=== PATIENT | female | born 1995 | race Hispanic/Latino ===

== ENCOUNTER 2017-09-14 21:18 | Emergency (ER) | payer MEDICAID, OTHER ==
[~2017-09-14 21:18] MED LIST: IBUP-2070 PO; PREN-66 PO
== END 2017-09-14 22:30 | disposition home or self-care (01) ==
LOC: EDH 21:18
DX: S10.86XA Insect bite of other specified part of neck, initial encounter (principal); Z88.0 Allergy status to penicillin; W57.XXXA Bitten or stung by nonvenomous insect and other nonvenomous arthropods, initial encounter; Y93.89 Activity, other specified; Y92.89 Other specified places as the place of occurrence of the external cause; Y99.8 Other external cause status
CPT/HCPCS: 99281

== ENCOUNTER 2021-07-12 18:04 | Observation (INO) | payer MEDICAID, OTHER ==
[~2021-07-12] VITALS: Ht 152.4 cm; Wt 91.6 kg
[2021-07-12 18:38] LABS: APPEARANCE,URINE Cloudy (CLEAR); BILIRUBIN,URINE Negative (NEGATIVE); COLOR,URINE Yellow (YELLOW); GLUCOSE, URINE (UA) Negative (NEGATIVE); KETONES,URINE >=160 mg/dL (NEGATIVE); LEUKOCYTE ESTERASE ,URINE Moderate (NEGATIVE); NITRATE,URINE Negative (NEGATIVE); OCCULT BLOOD,URINE Negative (NEGATIVE); PROTEIN,URINE Negative (NEGATIVE)
[2021-07-12 18:54] LABS: BACTERIA,URINE Few /HPF (None Seen); MUCUS,URINE Few LPF (None Seen); SQUAMOUS EPITHELIAL CELL,UR Moderate /HPF (0-2)
[2021-07-12] MEDS ORDERED: LACTATED RINGERS 1000ML IV PRN (19:30)
[2021-07-12] MEDS ORDERED: PREN1TAB80 PO (19:33)
[2021-07-12 19:34] VITALS: BP 129/88
[2021-07-12 19:47] LABS: AMPHET/METH SCREEN,URINE NEGATIVE (NEGATIVE); BARBITURATE SCREEN, URINE NEGATIVE (NEGATIVE); BENZODIAZEPINES SCREEN,URINE NEGATIVE (NEGATIVE); CANNABINOID SCREEN,URINE NEGATIVE (NEGATIVE); COCAINE SCREEN,URINE NEGATIVE (NEGATIVE); OPIATE SCREEN,URINE NEGATIVE (NEGATIVE); PHENCYCLIDINE SCREEN,URINE NEGATIVE (NEGATIVE)
[2021-07-13] MEDS ORDERED: MAGNESIUM SULFATE 40GM/1000ML 1,000 ML IV ONE (00:14)
[2021-07-13] MEDS ORDERED: MAGNESIUM 4GM PREMIX 100ML 100 ML IV ONE (00:14)
[2021-07-13] MEDS ORDERED: DEXAMETHASONE SOD PHOSPHATE 4 MG/ML 1ML VIAL ONE (00:15)
[2021-07-13] MEDS: DEXAMETHASONE SOD PHOSPHATE 4 MG/ML 1ML VIAL IM SCH ×4 (00:28→17:24)
[2021-07-13] MEDS ORDERED: MAGNESIUM 4GM PREMIX 100ML 100 ML IV SCH (00:30)
[2021-07-13] MEDS ORDERED: LACTATED RINGERS 1000ML 1,000 ML IV SCH (00:30)
[2021-07-13] MEDS ORDERED: CALCIUM GLUC 1GM/10ML VIAL IV PRN (00:30)
[2021-07-13] MEDS ORDERED: CLINDAMYCIN IVPB 600MG/50ML 50 ML IV SCH (01:00)
[2021-07-13] MEDS ORDERED: MAGNESIUM SULFATE 40GM/1000ML 1,000 ML IV PRN (01:00)
[2021-07-13 05:03] LABS: HEMATOCRIT 32.3 % (36-48); MEAN CORPUSCULAR HEMOGLOBIN 27.2 pg (27.0-33.0); MEAN CORPUSCULAR HGB CONC 33.1 g/dL (32.0-36.0); RED BLOOD CELL COUNT(AUTO) 3.94 MIL/uL (4.00-5.50); RED CELL DISTRIBUTION WIDTH 12.7 % (11.0-15.5); WHITE BLOOD COUNT (AUTO) 6.9 K/uL (4.8-10.8)
[2021-07-13 09:56] LABS: RAPID PLASMA REAGIN NONREACTIVE (NONREACTIVE)
== END 2021-07-13 18:05 | disposition home or self-care (01) ==
LOC: EDH 18:04 → INTOOBSV 18:05 → OBSVTOIN 18:05 → LDH 18:05
PROVIDERS: ADMIT Obstetrics & Gynecology; ATTEND Obstetrics & Gynecology
DX: O62.9 Abnormality of forces of labor, unspecified (principal); O60.03 Preterm labor without delivery, third trimester; O99.213 Obesity complicating pregnancy, third trimester; E66.9 Obesity, unspecified; O24.419 Gestational diabetes mellitus in pregnancy, unspecified control; O26.893 Other specified pregnancy related conditions, third trimester; R10.30 Lower abdominal pain, unspecified; Z3A.29 29 weeks gestation of pregnancy; Z79.899 Other long term (current) drug therapy; Z98.890 Other specified postprocedural states
CPT/HCPCS: 36415; 59025; 76805; 80305; 81001; 83735; 85027; 86592; 86701; 86850; 86900; 86901; 87088; 87340; 87390; 96361 ×2; 96365; 96366 ×2; 96368; 96372; A4314; G0378 ×24; G0379; J1100 ×4; J3475 ×2; J3490; 96367

== ENCOUNTER 2024-04-05 14:28 | Emergency (ER) | payer SELFPAY ==
[~2024-04-05] VITALS: Ht 152.4 cm; Wt 82.1 kg
[~2024-04-05 14:28] MED LIST changes: +PREN1TAB80 PO
[2024-04-05 14:57] VITALS: BP 121/60; PULSE 76; RESP 20; TEMP 99.4; O2SAT 99
--- NOTE | 2024-04-05 15:33 | ERN ---
ED Note History of Present Illness Stated Complaint: ABDOMINAL PAIN Chief Complaint: Abdominal Pain Dictation: This is a case of 28-year-old female with no significant past medical history who presented to the ER with the complaints of right quadrant abdominal pain since 2 days. She describes the pain as intermittent, moderate, nonradiating, pressure-like. She denies fever, chills, recent travel, headache, dizziness, nausea, vomiting, chest pain, palpitations, shortness of breath, diarrhea/constipation, burning sensation when urinating or increased frequency of urination. Hemodynamically stable. Allergies: Coded Allergies: Penicillins (Verified Allergy, Unknown, RASH, 01/23/15) Home Meds Reported Medications Vits W-Ca,Fe,FA(<1Mg) ( Vitamins) 1 Each Tablet, 1 EACH PO DAILY, TAB 07/12/21 Cpv179/Iron Fumarate/FA/Dss ( 19 Tablet) 1 Each Tablet, 1 EACH PO AD, TAB 02/11/17 Ibuprofen (Ibuprofen) 600 Mg Tablet, 600 MG PO Q6H PRN for PAIN, #60 TAB 01/25/15 Past Medical History Past Medical History: No Pertinent History Surgical History: None LMP: Mar 06, 2024 : 3 Para: 3 Aborts: 0 Review of System Dictation CONSTITUTIONAL: No chills, no fever, no weakness, no diaphoresis, no malaise. HEAD/FACE: No signs of trauma. EENT: No eye pain, no blurred vision, no tearing, no double vision, no ear pain, no ear discharge, no nose pain, no nasal congestion, no throat pain, no throat swelling, no mouth pain. RESPIRATORY: No cough, no orthopnea, no SOB, no stridor, no wheezing. CARDIOVASCULAR: No chest pain, no edema, no palpitations, no syncope. GASTROINTESTINAL/ABDOMINAL: Moderate right upper quadrant pain, no constip ation, no diarrhea, no nausea, no vomiting. GENITOURINARY: No abnormal discharge, no dysuria, no frequent urination, no hematuria. No complaints of pain in the genitals. MUSCULOSKELETAL: No back pain, no gout, no joint pain, no joint swelling, no muscle pain, no muscle stiffness, no neck pain. INTEGUMENTARY: No change in color, no change in hair/nails, no dryness, no lesion, no lumps, no rash. NEUROLOGICAL/PSYCH: No anxiety, not depressed, no emotional problem, no headache, no numbness, no pre-existing deficit, no history of seizures, no tremors, no weakness. HEMATOLOGIC/LYMPHATIC: no history of blood clots, no apparent bleeding, no bruising, glands not swollen. All Systems Negative, Except as Noted. Initial Vital Sign VS Vital Signs Date Time Temp Pulse Resp B/P (MAP) Pulse Ox O2 Delivery O2 Flow Rate FiO2 04/05/24 14:57 99.3 76 20 121/60 99 Room Air 0 04/05/24 14:57 21 Physical Exam Dictation Physical Exam Dictation VITAL SIGNS: Reviewed. GENERAL APPEARANCE: Alert, oriented x3, no acute distress, obese. HEAD AND FACE: Non-traumatic. EYES: PERRL, pink conjunctivas, eyelid no trauma, anterior chamber clear. NOSE: No discharge, no bleeding. OROPHARYNX: Mouth normal, teeth no caries, tongue pink. Pharynx clear, no erythema. Tonsils no exudates, no abscesses noted. Mucous membrane moist. NECK: Supple, non-tender, no thyromegaly, no masses, no JVD, no bruits. BREAST: Deferred. CHEST: No tenderness, no crepitus, no paradoxical movement, no retractions. LUNGS: Clear, well-ventilated, symmetric, no rales, no wheezing, no rhonchi, no stridor, good breath sounds bilaterally. HEART: Regular rate, regular rhythm, no murmur, no gallops. VASCULAR: No peripheral edema. ABDOMEN: Soft, positive bowel sounds, nondistended, no guarding, mild tenderness in right upper quadrant region no rebound, no masses no hepatomegaly, no splenomegaly, negative Estrada's sign, no hernias. RECTAL: Deferred. GENITAL: Deferred. NEUROLOGICAL: Normal speech, gross motor function intact, gross sensory function intact. MUSCULOSKELETAL: Neck nontender, full range of motion, back nontender, full range of motion. EXTREMITIES: Nontender, full range of motion. SKIN: Color pink, dry, no turgor, no rash, no lacerations, no abrasions, no contusions. LYMPHATICS: Deferred. Results (Laboratory/Radiology) Laboratory/Radiology Laboratory Tests Test 04/05/24 16:00 04/05/24 16:12 Urine Color YELLOW (YELLOW) Urine Appearance CLOUDY (CLEAR) H Urine pH 7.0 (5.0-8.0) Urine Specific G[place]mith 1.013 (1.001-1.031) Urine Protein NEGATIVE mg/dL (NEGATIVE) Urine Glucose (UA) NEGATIVE mg/dL (NEGATIVE) Urine Ketones NEGATIVE mg/dL (NEGATIVE) Urine Occult Blood NEGATIVE (NEGATIVE) Urine Nitrate NEGATIVE (NEGATIVE) Urine Bilirubin NEGATIVE mg/dL (NEGATIVE) Urine Urobilinogen 0.2 mg/dL (0.2-1.0) Urine Leukocyte Esterase 500 Diego/uL (NEGATIVE) H Urine RBC 6-10 /HPF (0-1) H Urine WBC 26-50 /HPF (0-1) H Urine Squamous Epithelial Cells MANY /HPF (0-2) Urine Bacteria None /HPF (None Seen) Serum Test, Qualitative NEGATIVE (NEGATIVE) White Blood Count 5.5 K/uL (4.8-10.8) Red Blood Count 4.77 MIL/uL (4.00-5.50) Hemoglobin 13.3 g/dL (12.0-16.0) Hematocrit 40.1 % (36-48) Mean Corpuscular Volume 84.1 fL (79-99) Mean Corpuscular Hemoglobin 27.9 pg (27.0-33.0) Mean Corpuscular Hemoglobin Concent 33.2 g/dL (32.0-36.0) Red Cell Distribution Width 12.5 % (11.0-15.5) Platelet Count 256 K/uL (130-400) Mean Platelet Volume 9.8 fL (7.5-10.5) Immature Granulocyte % (Auto) 0.2 % (0-1) Neutrophils (%) (Auto) 56.4 % (40.0-77.0) Lymphocytes (%) (Auto) 36.1 % (21.0-51.0) Monocytes (%) (Auto) 5.5 % (3.0-13.0) Eosinophils (%) (Auto) 1.3 % (0.0-8.0) Basophils (%) (Auto) 0.5 % (0.0-5.0) Neutrophils # (Auto) 3.1 K/uL (1.8-7.7) Lymphocytes # (Auto) 2.0 K/uL (1.0-4.8) Monocytes # (Auto) 0.3 K/uL (0.1-1.0) Eosinophils # (Auto) 0.07 K/uL (0.00-0.70) Basophils # (Auto) 0.03 K/uL (0.00-0.20) Absolute Immature Granulocyte (auto 0.01 K/uL (0-1) Nucleated Red Blood Cells 0.0 % (0.0-0.19) Prothrombin Time 10.3 SEC (9.6-11.6) Prothromb Time International Ratio <= 0.93 (0.85-1.15) Activated Partial Thromboplast Time 27.1 SEC (26.3-35.5) Sodium Level 140 mmol/L (136-145) Potassium Level 3.9 mmol/L (3.5-5.1) Chloride Level 104 mmol/L (101-111) Carbon Dioxide Level 27 mmol/L (21-32) Blood Urea Nitrogen 7 mg/dL (7-18) Creatinine 0.7 mg/dL (0.5-1.0) Glomerular Filtration Rate Calc 119 mL/min (>90) Random Glucose 88 mg/dL (70-105) Lactic Acid Level 1.3 mmol/L (0.8-2.5) Total Calcium 8.9 mg/dL (8.5-10.1) Total Bilirubin 1.1 mg/dL (0.2-1.0) H Direct Bilirubin 0.2 mg/dL (0.0-0.3) Aspartate Amino Transf (AST/SGOT) 13 U/L (10-37) Alanine Aminotransferase (ALT/SGPT) 18 U/L (12-78) Alkaline Phosphatase 68 U/L (50-136) Troponin I High Sensitivity < 4 ng/L (4-50) L Total Protein 8.0 g/dL (6.0-8.3) Albumin 3.4 g/dL (3.5-5.0) L Lipase 35 U/L (16-77) Procalcitonin < 0.05 ng/mL (0.05-0.5) L Human Chorionic Gonadotropin, Quant 0 mIU/mL (0-5) Ultrasound Comment: ORDERING PHYSICIAN: THOMAS GARCIA MD PROCEDURE: ABDRUQLTD - US ABDOMINAL RUQ\LTD US ABDOMINAL RUQ\E\LTD HISTORY: INTERMITTENT RUQ PAIN COMPARISON: None FINDINGS: There is mild fatty infiltration of the liver. There are no focal liver masses. The liver is not enlarged.There is a normal-appearing gallbladder. Common duct is normal. Right kidney is normal with no evidence of mass, hydronephrosis or stone.The pancreas appears normal as well. IMPRESSION: 1. Mild hepatic steatosis, the exam is otherwise normal. ED Course ED Course Orders Procedure Category Date Status Time 12 Lead Ekg Tracing- EKG 04/05/24 Complete Technical 14:32 Cbc With Differential LAB 04/05/24 Complete 14:32 Basic Metabolic Panel LAB 04/05/24 Complete 14:32 Hepatic Function Panel LAB 04/05/24 Complete 14:32 Hcg,Quantitative LAB 04/05/24 Complete 14:32 Lactic Acid LAB 04/05/24 Complete 14:32 Lipase LAB 04/05/24 Complete 14:32 Procalcitonin LAB 04/05/24 Complete 14:32 Testing, LAB 04/05/24 Complete Serum Hcg 14:32 Pt And Ptt LAB 04/05/24 Complete 14:32 Troponin I High LAB 04/05/24 Complete Sensitivity 14:32 Urinalysis LAB 04/05/24 Complete W/Microscopic 14:32 Us Abdominal Ruq\Ltd US 04/05/24 Resulted 15:26 Culture Urine CAMILA 04/05/24 In Process 16:41 Vital Signs Date Time Temp Pulse Resp B/P (MAP) Pulse Ox O2 Delivery O2 Flow Rate FiO2 04/05/24 14:57 99.3 76 20 121/60 99 Room Air* 0 21 04/05/24 14:57 99.3 76 20 121/60 99 Room Air 0 Medical Decision Making [facility] Potential differential diagnoses include: Cholelithiasis Hepatitis Peptic ulcer Assessment: We will order CBC to rule any anemia, infections and to evaluate the overall health of the patient. CMP was ordered in order to assess various electrolytes, kidney function, liver function ,protein levels and blood glucose levels. Right upper quadrant ultrasound to rule out cholelithiasis/cholecystitis. I will re-evaluate the patient after treatment and diagnostic exams have returned to determine whether they require further testing, can be safely discharged home, or need admission for further treatment and evaluation. Given the social determinants of health affecting care, including literacy, access to medical care, prescription drug management, and [id number]-[id number] drugs, I will ensure that treatment plans are tailored accordingly. Revaluation : Patient is alert awake and oriented. Hemodynamically stable. Labs CBC, BMP, LFT results are unremarkable. Urinalysis positive for leukocyte esterase indicating infection. Right upper quadrant ultrasound resulted in hepatic steatosis. Disposition: Patient is being discharged home with oral prescription of Keflex 500 mg b.i.d. for 10 days Advised to follow up with PCP within 2-3 days Advised to follow up with GI in view of hepatitic steatosis Follow a low-fat balanced diet Avoid excessive sugar, refined carbohydrates and processed foods Do not consume alcohol as it can worsen liver damage Take [id number] medications like acetaminophen p.r.n. for pain Complete the Keflex antibiotic course for UTI If symptoms worsen, such as increasing pain, fever, jaundice or vomiting seek immediate medical care DX & DISP Disposition: Discharge Departure Impression: Primary Impression: Hepatic steatosis Additional Impression: UTI (urinary tract infection) Critical Time: 30 minutes Condition: Stable Referrals: ASHELY HIGGINS Jr., MD (PCP) ATTESTATION BY PHYSICIAN I have seen and examined the patient. I reviewed the documentation, medical decision making, and treatment plan as noted by the resident above. I agree with the findings and plan of care. THOMAS ROMAN MD, MD Apr 05, 2024 15:33
--- NOTE | 2024-04-05 16:00 | HMCIMG ---
US ABDOMINAL RUQ\E\LTD HISTORY: INTERMITTENT RUQ PAIN COMPARISON: None FINDINGS: There is mild fatty infiltration of the liver. There are no focal liver masses. The liver is not enlarged.There is a normal-appearing gallbladder. Common duct is normal. Right kidney is normal with no evidence of mass, hydronephrosis or stone.The pancreas appears normal as well. IMPRESSION: 1. Mild hepatic steatosis, the exam is otherwise normal.
[2024-04-05 16:21] LABS: BASOPHILS # (AUTO) 0.03 K/uL (0.00-0.20); BASOPHILS % (AUTO) 0.5 % (0.0-5.0); EOSINOPHILS # (AUTO) 0.07 K/uL (0.00-0.70); EOSINOPHILS % (AUTO) 1.3 % (0.0-8.0); HEMATOCRIT 40.1 % (36-48); IMMATURE GRANULOCYTE ABSOLUTE 0.01 K/uL (0-1); LYMPHOCYTES % (AUTO) 36.1 % (21.0-51.0); MEAN CORPUSCULAR HEMOGLOBIN 27.9 pg (27.0-33.0); MEAN CORPUSCULAR HGB CONC 33.2 g/dL (32.0-36.0); MEAN CORPUSCULAR VOLUME 84.1 fL (79-99); MONOCYTES # (AUTO) 0.3 K/uL (0.1-1.0); MONOCYTES % (AUTO) 5.5 % (3.0-13.0); NEUTROPHILS # (AUTO) 3.1 K/uL (1.8-7.7); NEUTROPHILS % (AUTO) 56.4 % (40.0-77.0); PLATELET COUNT (AUTO) 256 K/uL (130-400); RED BLOOD CELL COUNT(AUTO) 4.77 MIL/uL (4.00-5.50); RED CELL DISTRIBUTION WIDTH 12.5 % (11.0-15.5); WHITE BLOOD COUNT (AUTO) 5.5 K/uL (4.8-10.8)
--- NOTE | 2024-04-05 16:25 | EKG ---
[facility] Test Date: 2024-04-05 Test Time: 16:19:49 Pat Name: AMNA COBURN Department: [facility]H Room: Gender: F Fullerette: [id number] : 1995 Requested By: RADHA VALENCIA Order Number: [id number] Reading MD: Ari Waterman Measurements Intervals [place] Rate: 72 P: 23 [place]: 113 QRS: 57 QRSD: 91 T: 12 QT: 399 QTc: 436 Interpretive Statements Sinus rhythm No previous ECG available for comparison Electronically Signed On 04-06-2024 18:39:15 [employer] by Ari Waterman Please click the below link to view image of tracing.
--- NOTE | 2024-04-05 16:30 | NUR ---
BEDED [place] [id number]
[2024-04-05 16:35] LABS: APPEARANCE,URINE CLOUDY (CLEAR); BILIRUBIN,URINE NEGATIVE (NEGATIVE); COLOR,URINE YELLOW (YELLOW); GLUCOSE, URINE (UA) NEGATIVE (NEGATIVE); KETONES,URINE NEGATIVE (NEGATIVE); LEUKOCYTE ESTERASE ,URINE 500 Leu/uL (NEGATIVE); NITRATE,URINE NEGATIVE (NEGATIVE); OCCULT BLOOD,URINE NEGATIVE (NEGATIVE); PROTEIN,URINE NEGATIVE (NEGATIVE); UROBILINOGEN,URINE 0.2 mg/dL (0.2-1.0)
[2024-04-05 16:39] LABS: CREATININE 0.7 mg/dL (0.5-1.0); POTASSIUM 3.9 mmol/L (3.5-5.1)
[2024-04-05 16:44] LABS: INR <= 0.93 (0.85-1.15); PROTHROMBIN TIME 10.3 SEC (9.6-11.6)
[2024-04-05 16:44] LABS: MUCUS,URINE RARE LPF (None Seen); SQUAMOUS EPITHELIAL CELL,UR MANY /HPF (0-2); WBC,URINE 26-50 /HPF (0-1)
[2024-04-05 16:45] LABS: PARTIAL THROMBOPLASTIN TIME 27.1 SEC (26.3-35.5)
[2024-04-05 16:51] LABS: ALBUMIN 3.4 g/dL (3.5-5.0); BILIRUBIN,DIRECT 0.2 mg/dL (0.0-0.3); BILIRUBIN,TOTAL 1.1 mg/dL (0.2-1.0)
[2024-04-05] MEDS ORDERED: SULF1TAB42 PO (17:16)
== END 2024-04-05 17:22 | disposition home or self-care (01) ==
LOC: EDH 14:28
DX: K76.0 Fatty (change of) liver, not elsewhere classified (principal); N39.0 Urinary tract infection, site not specified; R10.2 Pelvic and perineal pain; Z88.0 Allergy status to penicillin
CPT/HCPCS: 36415; 76705; 80048; 80076; 81001; 83605; 83690; 84145; 84484; 84702; 84703; 85025; 85610; 85730; 87086; 93005; 99284

== ENCOUNTER 2024-05-26 05:06 | Inpatient (IN) | payer SELFPAY ==
[~2024-05-26] VITALS: Ht 152.4 cm; Wt 81.1 kg
[2024-05-26] VITALS (21 sets, daily range): BP systolic 100–118; BP diastolic 52–63; PULSE 69–108; RESP 14–20; TEMP 97.1–99.8; O2SAT 100
[~2024-05-26 05:06] MED LIST changes: +SULF1TAB42 PO
--- NOTE | 2024-05-26 05:24 | ERN ---
General Chief Complaint: Abdominal Pain Stated Complaint: RUQ ABDOMINAL PAIN Time Seen by MD: 05:08 History of Present Illness Initial Comments 28F, otherwise healthy, presents for R sided abd pain x 36h. Started midline, has radiated to R mid abdomen. Nausea, no vomiting. PO tolerant, ate dinner without problem last night. No flank pain, fevers, vaginal bleeding or discharge, urinary symptoms, vomiting, or diarrhea. Patient reports a similar episode a few months ago which resolved. Allergies: Coded Allergies: Penicillins (Verified Allergy, Unknown, RASH, 01/23/15) Home Meds Active Scripts Sulfamethoxazole/Trimethoprim (Bactrim Ds Tablet) 800 Mg-160 Mg Tablet, 1 TAB PO BID for 7 Days, #14 TAB 0 Refills Prov:THOMAS GARCIA MD 04/05/24 Reported Medications Vits W-Ca,Fe,FA(<1Mg) ( Vitamins) 1 Each Tablet, 1 EACH PO DAILY, TAB 07/12/21 Kvo294/Iron Fumarate/FA/Dss ( 19 Tablet) 1 Each Tablet, 1 EACH PO AD, TAB 02/11/17 Ibuprofen (Ibuprofen) 600 Mg Tablet, 600 MG PO Q6H PRN for PAIN, #60 TAB 01/25/15 Past Medical History Past Medical History: Other Medical History Other: FATTY LIVER Past Surgical History: None Female( History) LMP: May 11, 2024 : 3 Para: 3 Aborts: 0 ROS Dictation CONSTITUTIONAL: No chills, no fever, no weakness, no diaphoresis, no malaise. HEAD/FACE: No signs of trauma. EENT: No eye pain, no blurred vision, no tearing, no double vision, no ear pain, no ear discharge, no nose pain, no nasal congestion, no throat pain, no throat swelling, no mouth pain. RESPIRATORY: No cough, no orthopnea, no SOB, no stridor, no wheezing. CARDIOVASCULAR: No chest pain, no edema, no palpitations, no syncope. GASTROINTESTINAL/ABDOMINAL: Right-sided abdominal pain GENITOURINARY: No abnormal discharge, no dysuria, no frequent urination, no hematuria. No complaints of pain in the genitals. MUSCULOSKELETAL: No back pain, no gout, no joint pain, no joint swelling, no muscle pain, no muscle stiffness, no neck pain. INTEGUMENTARY: No change in color, no change in hair/nails, no dryness, no lesion, no lumps, no rash. NEUROLOGICAL/PSYCH: No anxiety, not depressed, no emotional problem, no headache, no numbness, no pre-existing deficit, no history of seizures, no tremors, no weakness. HEMATOLOGIC/LYMPHATIC: Not anemic, no history of blood clots, no apparent bleeding, no bruising, glands not swollen. All Systems Negative, Except as Noted. Physical Exam Physical Exam Dictation VITAL SIGNS: Reviewed. GENERAL APPEARANCE: Alert, oriented x3, no acute distress, obese. HEAD AND FACE: Non-traumatic. EYES: PERRL, pink conjunctivas, eyelid no trauma, anterior chamber clear. EARS: Pinnas intact and no signs of trauma or erythema. Ear canals clear and no discharge. TMs no erythema. NOSE: No discharge, no bleeding. OROPHARYNX: Mouth normal, teeth no caries, tongue pink. Pharynx clear, no erythema. Tonsils no exudates, no abscesses noted. Mucous membrane moist. NECK: Supple, non-tender, no thyromegaly, no masses, no JVD, no bruits. BREAST: Deferred. CHEST: No tenderness, no crepitus, no paradoxical movement, no retractions. LUNGS: Clear, well-ventilated, symmetric, no rales, no wheezing, no rhonchi, no stridor, good breath sounds bilaterally. HEART: Regular rate, regular rhythm, no murmur, no gallops. VASCULAR: No peripheral edema. ABDOMEN: Soft, positive bowel sounds, nondistended, no guarding, RLQ tenderness, no rebound, no masses no hepatomegaly, no splenomegaly, no Estrada's sign, no hernias. RECTAL: Deferred. GENITAL: Deferred. NEUROLOGICAL: Normal speech, gross motor function intact, gross sensory function intact. MUSCULOSKELETAL: Neck nontender, full range of motion, back nontender, full range of motion. EXTREMITIES: Nontender, full range of motion. SKIN: Color pink, dry, no turgor, no rash, no lacerations, no abrasions, no contusions. LYMPHATICS: Deferred. Results Laboratory and Microbiology Lab and Micro Result Labs Reviewed?: Yes EKG/XRAY/US/CT/MRI CT Scan Comment REASON: R sided abd pain ORDERING PHYSICIAN: WORTH,ROEL E DO PROCEDURE: ABD PEL W - CT ABDOMEN/PELVIS W/CONTRAST CT ABDOMEN/PELVIS W/CONTRAST REASON: R sided abd pain COMPARISON: None. TECHNIQUE: Images are obtained from lung bases to the symphysis pubis following IV contrast, 100 cc Omnipaque 350. FINDINGS: Lung bases are clear. There are no focal liver lesions. There are normal-appearing kidneys.. Spleen and pancreas appear unremarkable. The gallbladder appears normal as well. The appendix is dilated to 9 mm. There is inflammation around the appendix. There is mural enhancement. Findings are consistent with acute appendicitis. There is a small amount of free fluid in the pelvic cul-de-sac. There is no evidence of periappendiceal abscess. Bowel loops appear otherwise unremarkable. There is no evidence of obstruction. There is no evidence of free air. There are no focal fluid collections. Aorta and retroperitoneum appear normal as do pelvic soft tissue structures. The anterior abdominal wall is intact. Osseous structures appear unremarkable. IMPRESSION: 1. Findings consistent with acute appendicitis. 2. Small amount of free fluid in the pelvic cul-de-sac, there is no evidence of abscess or free air. CT was performed with one or more following dose reduction techniques: automated exposure control, adjustment of the mA and kv according to patient's size, or use of a iterative reconstruction technique. DICTATED BY: FELIZ ALDANA MD DATE: 05/26/24 08 [facility] MDM: Differential diagnosis: Appendicitis, abdominal pain Surgery consult 09- Hospitalist consult, accepts patient for admission Rationale: Tests considered and ordered secondary to shared decision making incl ude: labs, ECG and radiology Risk of complication and/or morbidity or mortality of patient management: None Medications-Per medication reconciliation Need for hospitalization: Patient does meet criteria for hospitalization. Need for emergency major/minor surgery: No There are no social concerns with this patient. I independently interpreted the test that were performed, results were reviewed by me and considered findings on radiology if ordered. Medical management and examination interpretation discussions were had by me with other qualified healthcare professionals as indicated for the patient's care. ED Course DX & DISP Disposition: Inpatient Decision to Admit Date: May 26, 2024 Decision to Admit Time: 09:27 Departure Impression: Primary Impression: Appendicitis Condition: Stable Referrals: SELF,REFERRAL (PCP) ROEL TRIPLETT DO May 26, 2024 05:24 GOPI DIAZ MD May 26, 2024 09:25
[2024-05-26] MEDS: ondanSETRON 4MG INJ IVP ONE (05:27)
[2024-05-26] MEDS: ketOROlac 15MG/ML VIAL (15MG/ML) IV ONE (05:27)
[2024-05-26 05:36] LABS: BASOPHILS # (AUTO) 0.04 K/uL (0.00-0.20); BASOPHILS % (AUTO) 0.4 % (0.0-5.0); EOSINOPHILS # (AUTO) 0.17 K/uL (0.00-0.70); EOSINOPHILS % (AUTO) 1.6 % (0.0-8.0); HEMATOCRIT 40.5 % (36-48); IMMATURE GRANULOCYTE ABSOLUTE 0.02 K/uL (0-1); LYMPHOCYTES # (AUTO) 3.3 K/uL (1.0-4.8); LYMPHOCYTES % (AUTO) 31.3 % (21.0-51.0); MEAN CORPUSCULAR HEMOGLOBIN 27.8 pg (27.0-33.0); MEAN CORPUSCULAR HGB CONC 32.8 g/dL (32.0-36.0); MEAN CORPUSCULAR VOLUME 84.6 fL (79-99); MONOCYTES # (AUTO) 0.6 K/uL (0.1-1.0); MONOCYTES % (AUTO) 5.7 % (3.0-13.0); NEUTROPHILS # (AUTO) 6.5 K/uL (1.8-7.7); NEUTROPHILS % (AUTO) 60.8 % (40.0-77.0); PLATELET COUNT (AUTO) 233 K/uL (130-400); RED BLOOD CELL COUNT(AUTO) 4.79 MIL/uL (4.00-5.50); RED CELL DISTRIBUTION WIDTH 12.6 % (11.0-15.5); WHITE BLOOD COUNT (AUTO) 10.7 K/uL (4.8-10.8)
[2024-05-26 05:50] LABS: ALBUMIN 3.3 g/dL (3.5-5.0); BILIRUBIN,DIRECT 0.2 mg/dL (0.0-0.3); BILIRUBIN,TOTAL 1.1 mg/dL (0.2-1.0); TOTAL PROTEIN, SERUM 7.8 g/dL (6.0-8.3)
[2024-05-26 05:58] LABS: APPEARANCE,URINE CLEAR (CLEAR); BILIRUBIN,URINE NEGATIVE (NEGATIVE); COLOR,URINE LIGHT-YELLOW (YELLOW); GLUCOSE, URINE (UA) NEGATIVE (NEGATIVE); KETONES,URINE NEGATIVE (NEGATIVE); LEUKOCYTE ESTERASE ,URINE 75 Leu/uL (NEGATIVE); NITRATE,URINE NEGATIVE (NEGATIVE); OCCULT BLOOD,URINE NEGATIVE (NEGATIVE); PROTEIN,URINE NEGATIVE (NEGATIVE); UROBILINOGEN,URINE 0.2 mg/dL (0.2-1.0)
[2024-05-26 06:01] LABS: ADD UA MICROSCOPIC YES
[2024-05-26 06:02] LABS: BACTERIA,URINE FEW /HPF (None Seen); MUCUS,URINE RARE LPF (None Seen); RBC,URINE 0-1 /HPF (0-1); SQUAMOUS EPITHELIAL CELL,UR FEW /HPF (0-2)
[2024-05-26 06:23] LABS: CREATININE 0.5 mg/dL (0.5-1.0); POTASSIUM 3.6 mmol/L (3.5-5.1)
[2024-05-26] MEDS ORDERED: IOHEXOL 350 MG/ML 100ML INFUS..BTL IV ONE (06:37)
--- NOTE | 2024-05-26 08:22 | HMCIMG ---
CT ABDOMEN/PELVIS W/CONTRAST REASON: R sided abd pain COMPARISON: None. TECHNIQUE: Images are obtained from lung bases to the symphysis pubis following IV contrast, 100 cc Omnipaque 350. FINDINGS: Lung bases are clear. There are no focal liver lesions. There are normal-appearing kidneys.. Spleen and pancreas appear unremarkable. The gallbladder appears normal as well. The appendix is dilated to 9 mm. There is inflammation around the appendix. There is mural enhancement. Findings are consistent with acute appendicitis. There is a small amount of free fluid in the pelvic cul-de-sac. There is no evidence of periappendiceal abscess. Bowel loops appear otherwise unremarkable. There is no evidence of obstruction. There is no evidence of free air. There are no focal fluid collections. Aorta and retroperitoneum appear normal as do pelvic soft tissue structures. The anterior abdominal wall is intact. Osseous structures appear unremarkable. IMPRESSION: 1. Findings consistent with acute appendicitis. 2. Small amount of free fluid in the pelvic cul-de-sac, there is no evidence of abscess or free air. CT was performed with one or more following dose reduction techniques: automated exposure control, adjustment of the mA and kv according to patient's size, or use of a iterative reconstruction technique.
[2024-05-26] MEDS: CEFTRIAXONE 2GM VIAL IVPB ONE (09:02)
[2024-05-26] MEDS ORDERED: ondanSETRON 4MG INJ IVP PRN (10:00)
[2024-05-26] MEDS ORDERED: acetaMINOPHEN 325 MG TAB PO PRN (10:00)
[2024-05-26] MEDS ORDERED: morPHINE 2 MG SYG IVP PRN (10:00)
--- NOTE | 2024-05-26 10:05 | NUR ---
1000 PT TAKEN BY STRETECHER TO OR HOLDING FOR SURGERY BY YVONNE TRAN, PT [id number] VITALS STABLE NO C/O PAIN, AT BEDSIDE WTH PERSONAL BELONGINGS WILL WAIT IN HOLDING AREA.
--- NOTE | 2024-05-26 10:24 | CONS ---
GENERAL SURGERY CONSULTATION NOTE Date/Time Patient Seen: 05/26/2024 10:00 a.m. Requesting Physician: ED physician Reason for Consultation: Acute appendicitis History of Present Illness: This is a 28-year-old female that presented to the ED for 24 hours of periumbilical abdominal pain radiating to the right side. Patient reports that she had similar pain a couple of weeks ago that resolved on its own. This pain has been constant and worsening. So she came to the ED. patient denies any fevers, chills, nausea, or vomiting. No constipation or diarrhea. In the ED patient has been afebrile and hemodynamically stable. She has no leukocytosis. A CT scan of the abdomen and pelvis was performed showing an enlarged and indurated appendix with surrounding fat stranding. Patient was admitted to the hospitalist service and started on IV fluids and IV antibiotics. Surgery was consulted for suspected acute appendicitis. Past Medical History: None Past Surgical History: None Family History: None Social History: Nonsmoker Nondrinker Current Medications Medications (Trade) Dose Ordered Sig/Paula Route Start Time Stop Time Status Last Admin Dose Admin Famotidine (Pepcid 20mg Vial) 20 mg BID IV 05/26/24 21:00 06/25/24 20:59 Piperacillin Sod/ Tazobactam Sod (Zosyn 3.375gm+NS 50ml) 3.375 gm Q8H IV 05/26/24 14:00 06/05/24 13:59 Review of Systems: CONST: No fever, fatigue, or weight changes. EYES: No recent vision problems. ENT: No congestion, ear pain, or sore throat. C/V: No chest pain, palpitations, or edema. RESP: No cough, congestion, wheezing or shortness of breath. GI: No abdominal pain, nausea, vomiting, constipation, or diarrhea. : No incontinence or dysuria. SKIN: No rash. NEURO: No headache, focal numbness or weakness, dizziness, or seizures. PSYCH: No depression or anxiety. HEME: No abnormal bruising or bleeding. LYMPH: No swollen glands. Physical Examination: GENERAL: No acute distress. HEAD: Normal with no signs of head trauma. EYES: PERRLA, EOMI, conjunctiva and sclera normal. LUNGS: Respirations nonlabored HEART: Regular rate and rhythm ABD: Soft, nondistended, mild focal tenderness to the right hemiabdomen, no rebound, no guarding : Not examined EXT: No clubbing, cyanosis or edema. SKIN: No rashes or lesions noted. NEURO: Awake, alert, and oriented x3. No focal sensory or strength deficits noted. Vital Signs (last 8hr) Date Time Temp Pulse Resp B/P (MAP) Pulse Ox O2 Delivery O2 Flow Rate FiO2 05/26/24 08:59 98.6 69 16 101/53 100 Room Air* 0 21 05/26/24 06:27 98.6 74 20 106/65 100 Room Air* 0 21 05/26/24 05:27 98.6 72 20 123/70 100 Room Air* 0 21 05/26/24 05:08 98.4 74 18 105/64 100 Room Air 0 Laboratory: Hematology Labs: Test 05/26/24 05:23 Range/Units White Blood Count 10.7 4.8-10.8 K/uL Red Blood Count 4.79 4.00-5.50 MIL/uL Hemoglobin 13.3 12.0-16.0 g/dL Hematocrit 40.5 36-48 % Mean Corpuscular Volume 84.6 79-99 fL Mean Corpuscular Hemoglobin 27.8 27.0-33.0 pg Mean Corpuscular Hemoglobin Concent 32.8 32.0-36.0 g/dL Red Cell Distribution Width 12.6 11.0-15.5 % Platelet Count 233 130-400 K/uL Mean Platelet Volume 10.1 7.5-10.5 fL Immature Granulocyte % (Auto) 0.2 0-1 % Neutrophils (%) (Auto) 60.8 40.0-77.0 % Lymphocytes (%) (Auto) 31.3 21.0-51.0 % Monocytes (%) (Auto) 5.7 3.0-13.0 % Eosinophils (%) (Auto) 1.6 0.0-8.0 % Basophils (%) (Auto) 0.4 0.0-5.0 % Neutrophils # (Auto) 6.5 1.8-7.7 K/uL Lymphocytes # (Auto) 3.3 1.0-4.8 K/uL Monocytes # (Auto) 0.6 0.1-1.0 K/uL Eosinophils # (Auto) 0.17 0.00-0.70 K/uL Basophils # (Auto) 0.04 0.00-0.20 K/uL Absolute Immature Granulocyte (auto 0.02 0-1 K/uL Nucleated Red Blood Cells 0.0 0.0-0.19 % Chemistry Labs: Test 05/26/24 05:23 Range/Units Sodium Level 140 136-145 mmol/L Potassium Level 3.6 3.5-5.1 mmol/L Chloride Level 106 101-111 mmol/L Carbon Dioxide Level 26 21-32 mmol/L Blood Urea Nitrogen 5 L 7-18 mg/dL Creatinine 0.5 0.5-1.0 mg/dL Glomerular Filtration Rate Calc 129 >90 mL/min Random Glucose 93 70-105 mg/dL Total Calcium 8.3 L 8.5-10.1 mg/dL Total Bilirubin 1.1 H 0.2-1.0 mg/dL Direct Bilirubin 0.2 0.0-0.3 mg/dL Aspartate Amino Transf (AST/SGOT) 13 10-37 U/L Alanine Aminotransferase (ALT/SGPT) 23 12-78 U/L Alkaline Phosphatase 67 50-136 U/L Total Protein 7.8 6.0-8.3 g/dL Albumin 3.3 L 3.5-5.0 g/dL Amylase Level 46 25-115 U/L Lipase 26 16-77 U/L Human Chorionic Gonadotropin, Quant 0 0-5 mIU/mL Diagnostics / Radiology: PATIENT: AMNA COBURN MR#: [id number] : 1995 SEX: F AGE: 28 LOCATION: [facility] ORDER 3 STATUS: REG ER REPORT#: [id number] SERVICE 3 REASON: R sided abd pain ORDERING PHYSICIAN: ROEL TRIPLETT DO PROCEDURE: ABD PEL W - CT ABDOMEN/PELVIS W/CONTRAST CT ABDOMEN/PELVIS W/CONTRAST REASON: R sided abd pain COMPARISON: None. TECHNIQUE: Images are obtained from lung bases to the symphysis pubis following IV contrast, 100 cc Omnipaque 350. FINDINGS: Lung bases are clear. There are no focal liver lesions. There are normal-appearing kidneys.. Spleen and pancreas appear unremarkable. The gallbladder appears normal as well. The appendix is dilated to 9 mm. There is inflammation around the appendix. There is mural enhancement. Findings are consistent with acute appendicitis. There is a small amount of free fluid in the pelvic cul-de-sac. There is no evidence of periappendiceal abscess. Bowel loops appear otherwise unremarkable. There is no evidence of obstruction. There is no evidence of free air. There are no focal fluid collections. Aorta and retroperitoneum appear normal as do pelvic soft tissue structures. The anterior abdominal wall is intact. Osseous structures appear unremarkable. IMPRESSION: 1. Findings consistent with acute appendicitis. 2. Small amount of free fluid in the pelvic cul-de-sac, there is no evidence of abscess or free air. CT was performed with one or more following dose reduction techniques: automated exposure control, adjustment of the mA and kv according to patient's size, or use of a iterative reconstruction technique. DICTATED BY: FELIZ ALDANA MD DATE: 05/26/24816 ELECTRONICALLY SIGNED BY: FELIZ ALDANA MD DATE: 05/26/24821 Assessment: This is a 28-year-old female with acute onset abdominal pain radiating to the right lower quadrant likely due to acute appendicitis. I recommended laparoscopic appendectomy. I discussed the procedure in detail with the patient and her was at bedside. All questions were answered. The patient expressed understanding and agreement with the plan. Plan: OR now Continue IV antibiotics Continue IV fluids STEPHANIE OBANDO DO May 26, 2024 10:24
[2024-05-26] MEDS ORDERED: BUPIvacaine/PF 0.25% 30ML VIAL IJ ONE (10:52)
[2024-05-26] MEDS ORDERED: LIDOCAINE HCL 1% 20 ML VIAL ONE (10:52)
[2024-05-26] MEDS ORDERED: rocuRONium bROMide 10MG/1ML 5ML VL ONE (10:57)
[2024-05-26] MEDS ORDERED: SUCCINYLCHOLINE CHLORIDE 20 MG/ML 10 ML VIAL ONE (10:57)
[2024-05-26] MEDS ORDERED: dexaMETHasone SOD PHOSPHATE 10MG/ML 1ML VIAL ONE (10:57)
[2024-05-26] MEDS ORDERED: ondanSETRON 4MG INJ ONE ×2 (10:57→11:28)
[2024-05-26] MEDS ORDERED: NEOSTIGMINE METHYLSULFATE 1MG/ML IV ONE ×2 (10:57→12:15)
[2024-05-26] MEDS ORDERED: proPOFol 10 MG/ML 20ML VIAL IV ONE (10:57)
[2024-05-26] MEDS ORDERED: GLYCOPYRROLATE 0.2 MG/ML 5 ML VIAL ONE ×2 (10:57→12:15)
[2024-05-26] MEDS ORDERED: LIDOCAINE PF 100MG/5ML (2%) SYRINGE 5ML ONE (10:57)
[2024-05-26] MEDS ORDERED: MIDAZOLAM HCL 1 MG/ML 2ML VIAL ONE (10:58)
[2024-05-26] MEDS ORDERED: FENTanyl CITRate PF 50 MCG/1 ML 2ML VIAL ONE (10:58)
[2024-05-26] MEDS ORDERED: ROPivacaine 0.5% 5MG/ML 30ML ONE (11:03)
[2024-05-26] MEDS ORDERED: dexaMETHasone SOD PHOSPHATE 4 MG/ML 1ML VIAL ONE (11:15)
[2024-05-26] MEDS ORDERED: ePHEDrine SULFate 50 MG/ML AMPULE ONE (11:53)
[2024-05-26] MEDS ORDERED: ketOROlac 30MG VIAL (30MG/ML) ONE (12:18)
--- NOTE | 2024-05-26 12:23 | OP ---
Operative Note: DATE OF PROCEDURE: 05/26/24 SURGEON: STEPHANIE OBANDO DO DUPLICATING MACHINE SERVICER: None ANESTHESIA: General ANESTHESIOLOGIST/EDUCATIONAL PSYCHOLOGY PROFESSOR: ANDREY Godwin PREOPERATIVE DIAGNOSIS: Acute appendicitis POSTOPERATIVE DIAGNOSIS: Acute uncomplicated appendicitis SYNOPSIS: None PROCEDURE: Laparoscopic appendectomy ESTIMATED BLOOD LOSS: 30 cc INDICATIONS: This is a 28-year-old female with acute onset lower abdominal pain radiating to the right side. She had no leukocytosis. No fever. CT scan of the abdomen and pelvis showed an enlarged and indurated appendix with surrounding fat stranding. Patient was focally tender to palpation in the right hemiabdomen. I recommended laparoscopic appendectomy. I discussed the procedure in detail with the patient and her who was present. All questions were answered. Both expressed understanding and agreement with plan. DESCRIPTION OF PROCEDURE: Patient was placed on the operating table in the supine position with the left arm tucked. After being sedated and intubated by anesthesia the abdomen was prepped and draped in the usual sterile fashion. Patient is on antibiotics from the floor next dose not due for 3 hours. Local anesthetic was infiltrated into the proposed site of the supraumbilical incision. A transverse supraumbilical skin incision was made and dissection was carried down to the level of fascia. The fascia was grasped with 2 Rylee clamps and elevated. The fascia was incised and the peritoneum was entered bluntly. A 12 mm balloon port was inserted into the peritoneal cavity and the abdomen was insufflated. The patient tolerated insufflation well. A laparoscopic camera was inserted into the abdomen and all 4 quadrants were inspected. No gross abnormalities apparent and no evidence of inadvertent injury apparent. Two 5 mm ports were then placed in the suprapubic region and left lower quadrant under direct visualization. The patient was placed in Trendelenburg position with right side up. The appendix was identified and found to be indurated and dilated with minimal adhesions to surrounding fat. The mesoappendix was divided using the Vuoyant vessel sealing device. The base of the appendix was transected using a white load laparoscopic stapling device. The staple line was inspected and found to be hemostatic. The appendix was placed into a laparoscopic bag. A moderate amount of turbid fluid was suctioned from the pelvis. The 5 mm ports were removed under direct visualization and no ongoing bleeding evident. The appendix was removed with the 12 mm port and handed off for routine pathology. The fascia of the 12 mm port site was approximated using 0 Vicryl in a single [id number] suture. The skin was approximated using skin liborio. Wounds were dressed with gauze and tape. All instrument, needle, and sponge counts were correct at the end of the procedure. The patient tolerated the procedure well. The patient was aroused from sedation extubated and taken to the postanesthesia care unit in good condition. STEPHANIE OBANDO DO May 26, 2024 12:23
--- NOTE | 2024-05-26 13:46 | HP ---
[facility] HISTORY AND PHYSICAL Date of Service: May 26, 2024 Time of Service: 13:37 HISTORY OF PRESENT ILLNESS: 28-year-old female with no previous medical problems, who presented to [facility] ED earlier today with complaints of abdominal pain concentrated to the right lower quadrant region, associated with nausea however no vomiting x2 days. Patient denied fever, chills, diarrhea, dysuria. Patient reporting similar symptoms approximately two months ago, which resolved on their own. Patient states her pain progressively worsened this morning therefore she decided to come to the hospital for further evaluation. Upon arrival to ED she was noted afebrile, blood pressure 105/64, heart rate 74, respirations 18, O2 saturation 100% on room air. Further evaluation labs reveal a T bili of 1.1, otherwise normal liver panel,, renal panel, no leukocytosis. Further workup CT a/P revealed findings consistent with acute appendicitis, with small amount of free fluid in the pelvic cul-de-sac, no evidence of abscess or free air. In the ED patient was initiated on broad-spectrum IV antibiotics, IVF, and request made to admit to the hospital for further evaluation. A surgical consult was obtained, and patient has had successful laparoscopic appendectomy performed today. REVIEW OF SYSTEMS CONSTITUTIONAL: Denies fevers, chills, or night sweats. No unintentional weight loss reported. NEUROLOGICAL: Denies headache, amaurosis fugax, motor weakness, sensory deficit, vertigo/spinning sensation, gait abnormalities, or tremors. ENT: No hearing loss, otalgia, otorrhea, rhinitis, rhinorrhea, hoarseness, or sore throat. CARDIOVASCULAR: Denies any exertional angina, dyspnea on exertion, orthopnea, paroxysmal nocturnal dyspnea, palpitations, life-threatening arrhythmias, claudication. PULMONARY: Denies any shortness of breath, cough, phlegm/sputum, hemoptysis, pleuritic chest pain. SLEEP: Denies morning headaches, daytime somnolence or napping. Denies difficulty falling asleep, staying asleep, waking from sleep. Denies knowledge of snoring. GASTROINTESTINAL: Denies any type of dysphagia to either liquids or solids. Denies nausea, vomiting, pyrosis, early satiety, abdominal pain, diarrhea, constipation, or changes in stool consistency or caliber. Denies coffee-ground emesis, hematemesis, hematochezia, or melanotic stools. GENITOURINARY: Denies frequency, urgency, nocturia, hematuria or incontinence (Storage/Irritative symptoms.) Low urinary stream, straining to void, urinary intermittency or hesitancy, splitting of the voiding stream, terminal dribbling. ENDOCRINOLOGIC: Denies polyuria, polydipsia, polyphagia or heat/cold intolerances. HEMATOLOGIC: Denies thrombophilia/previous clots, or coagulopathy/bleeding disorders. ONCOLOGIC: Denies personal history of malignancy. DERMATOLOGIC: Denies rashes or pruritus. PSYCHIATRIC: Denies any suicidal or homicidal ideation. Denies hallucinations. PAST MEDICAL HISTORY: As mentioned in HPI PAST SURGICAL HISTORY: No previous surgeries PAST SOCIAL HISTORY: No tobacco no no substance abuse FAMILY HISTORY: Noncontributory Coded Allergies: Penicillins (Verified Allergy, Unknown, RASH, 01/23/15) PHYSICAL EXAM GENERAL APPEARANCE: The patient is awake, alert, and oriented, in no acute cardiopulmonary distress. NEUROLOGICAL: Cranial nerves II-XII grossly intact. Motor is 5/5 in bilateral upper and lower extremities proximal to distal. No sensory deficits. HEENT: Face is symmetric. Pupils are equal and reactive. Extraocular movements are intact. NECK: Supple. No JVD. No thyromegaly. No submental, submandibular, pre- /postauricular, occipital or supraclavicular lymphadenopathy. CHEST: Normal chest expansion. No Telemetry. LUNGS: Absence of any rales, rhonchi or any wheezing. CARDIOVASCULAR: Regular. S1 and S2 normal. No appreciable rubs, murmurs or gallops. ABDOMEN: Soft, bowel sounds positive. Nontender nondistended. Postop wounds clean dressings applied. : Deferred. No Villarreal. EXTREMITIES: Non-edematous and not cyanotic. No clubbing. Good capillary refill. SKIN: No skin breakdown. Vital Sign (Last 24 Hours) 05/26/24 05/26/24 12:26 13:21 Temp 97.9 Pulse 81 Resp 14 B/P (MAP) 105/52 Pulse Ox 100 O2 Delivery Nasal Cannula O2 Flow Rate 2.0 FiO2 24 LABS: Laboratory: Test 05/26/24 05:23 Range/Units White Blood Count 10.7 4.8-10.8 K/uL Red Blood Count 4.79 4.00-5.50 MIL/uL Hemoglobin 13.3 12.0-16.0 g/dL Hematocrit 40.5 36-48 % Mean Corpuscular Volume 84.6 79-99 fL Mean Corpuscular Hemoglobin 27.8 27.0-33.0 pg Mean Corpuscular Hemoglobin Concent 32.8 32.0-36.0 g/dL Red Cell Distribution Width 12.6 11.0-15.5 % Platelet Count 233 130-400 K/uL Mean Platelet Volume 10.1 7.5-10.5 fL Immature Granulocyte % (Auto) 0.2 0-1 % Neutrophils (%) (Auto) 60.8 40.0-77.0 % Lymphocytes (%) (Auto) 31.3 21.0-51.0 % Monocytes (%) (Auto) 5.7 3.0-13.0 % Eosinophils (%) (Auto) 1.6 0.0-8.0 % Basophils (%) (Auto) 0.4 0.0-5.0 % Neutrophils # (Auto) 6.5 1.8-7.7 K/uL Lymphocytes # (Auto) 3.3 1.0-4.8 K/uL Monocytes # (Auto) 0.6 0.1-1.0 K/uL Eosinophils # (Auto) 0.17 0.00-0.70 K/uL Basophils # (Auto) 0.04 0.00-0.20 K/uL Absolute Immature Granulocyte (auto 0.02 0-1 K/uL Nucleated Red Blood Cells 0.0 0.0-0.19 % Urine Color LIGHT-YELLOW YELLOW Urine Appearance CLEAR CLEAR Urine pH 7.0 5.0-8.0 Urine Specific [place] 1.017 1.001-1.031 Urine Protein NEGATIVE NEGATIVE mg/dL Urine Glucose (UA) NEGATIVE NEGATIVE mg/dL Urine Ketones NEGATIVE NEGATIVE mg/dL Urine Occult Blood NEGATIVE NEGATIVE Urine Nitrate NEGATIVE NEGATIVE Urine Bilirubin NEGATIVE NEGATIVE mg/dL Urine Urobilinogen 0.2 0.2-1.0 mg/dL Urine Leukocyte Esterase 75 H NEGATIVE [place]/uL Urine RBC 0-1 0-1 /HPF Urine WBC 2-5 H 0-1 /HPF Urine Squamous Epithelial Cells FEW 0-2 /HPF Urine Bacteria FEW None Seen /HPF Urine HCG, Qualitative NEGATIVE NEGATIVE Sodium Level 140 136-145 mmol/L Potassium Level 3.6 3.5-5.1 mmol/L Chloride Level 106 101-111 mmol/L Carbon Dioxide Level 26 21-32 mmol/L Blood Urea Nitrogen 5 L 7-18 mg/dL Creatinine 0.5 0.5-1.0 mg/dL Glomerular Filtration Rate Calc 129 >90 mL/min Random Glucose 93 70-105 mg/dL Total Calcium 8.3 L 8.5-10.1 mg/dL Total Bilirubin 1.1 H 0.2-1.0 mg/dL Direct Bilirubin 0.2 0.0-0.3 mg/dL Aspartate Amino Transf (AST/SGOT) 13 10-37 U/L Alanine Aminotransferase (ALT/SGPT) 23 12-78 U/L Alkaline Phosphatase 67 50-136 U/L Total Protein 7.8 6.0-8.3 g/dL Albumin 3.3 L 3.5-5.0 g/dL Amylase Level 46 25-115 U/L Lipase 26 16-77 U/L Human Chorionic Gonadotropin, Quant 0 0-5 mIU/mL Current Medications Medications (Trade) Dose Ordered Sig/Paula Route PRN Reason Start Time Stop Time Status Last Admin Dose Admin Acetaminophen (TYLenol 325MG TAB) 650 mg Q6H PRN PO MILD PAIN (1-3) 05/26/24 10:00 06/25/24 09:59 Famotidine (Pepcid 20mg Vial) 20 mg BID IV 05/26/24 21:00 06/25/24 20:59 Morphine Sulfate (morPHINE 2MG SYG) 2 mg Q6H6 PRN IVP SEVERE PAIN (7-10) 05/26/24 10:00 06/02/24 09:59 Ondansetron HCl (zoFRAN 4MG INJ) 4 mg Q8H PRN IVP NAUSEA/VOMITING 05/26/24 10:00 06/25/24 09:59 Piperacillin Sod/ Tazobactam Sod (Zosyn 3.375gm+NS 50ml) 3.375 gm Q8H IV 05/26/24 14:00 06/05/24 13:59 DIAGNOSTICS / RADIOLOGY: [ ] ASSESSMENT: Acute appendicitis POA Elevated T bili POA Obesity POA PLAN: Admit patient to medical floor under hospitalist team Patient status post successful laparoscopic appendectomy performed today. Continue to follow up with surgical team. Pain control. Initiate regular diet Continue broad-spectrum IV antibiotics with IV Zosyn. DVT and GI prophylaxis Encourage ambulation P.r.n. medications for fever, pain, nausea, constipation Follow-up a.m. labs Further orders per hospital course. Possible DC home in a.m.. ADVANCED CARE PLANNING 1. Which of the following were discussed? Hospice Care - No Therapeutic options - Yes Advance Directives - Yes Other discussions - 2. Discussed with who? The patient 3. Voluntary nature of this service was explained to the patient? Yes 4. Amount of time spent - ___ 20 minutes ____ 5. Reviewed by Physician? (if this service was performed by NPP) Yes HAILEE VALENTINE May 26, 2024 13:46
[2024-05-26] MEDS ORDERED: ZOSYN 3.375GM +NS 50ML IV SCH (14:00)
[2024-05-26] MEDS ORDERED: levoFLOXacin 750 MG/D5W 150ML BAG IV SCH (14:00)
--- NOTE | 2024-05-26 14:27 | NUR ---
PT TO DAY PT #15 NAD VSS ABD SOFT SURGICAL SITE X 3 ASYMPTOMATIC
--- NOTE | 2024-05-26 15:00 | NUR ---
REPORT REPORT GIVEN AT NURSES STATION FROM PRINCE MARSHALL. PATIENT AWAKE, ALERT, STABLE, AND ORIENTED. PATIENT STATES NO PAIN. ABDOMEN SOFT TO TOUCH. NO DRAINAGE, REDNESS, OR SWELLING TO INCISIONS. SPOUSE AT BEDSIDE. STRETCHER LOW AND LOCKED SIDE RAILS UP X2. CALL LIGHT AT BEDSIDE.
[2024-05-26] MEDS: levoFLOXacin 750 MG/D5W 150 ML 150 ML IV SCH (15:51)
--- NOTE | 2024-05-26 15:51 | NUR ---
VOIDED PATIENT AMBULATED TO THE RESTROOM. VOIDED 100CC. PATIENT BACK IN STRETCHER SIDE RAILS UP. STRETCHER LOW AND LOCKED. SPOUSE AT BEDSIDE. PATIENT AWAKE, AND ORIENTED X4. CALL LIGHT AT BEDSIDE.
--- NOTE | 2024-05-26 16:00 | NUR ---
VOIDED PATIENT AMBULATED TO RESTROOM WITH IV POLE. VOIDED 100CC. CLEAR, YELLOW URINE. IN BED AWAKE AND ORIENTED.
--- NOTE | 2024-05-26 17:59 | NUR ---
VOIDED PATIENT VOIDED 200CC. CLEAR, YELLOW URINE. AMBULATED TO RESTROOM WITH IV POLE. PATIENT AWAKE AND ORIENTED X4.
--- NOTE | 2024-05-26 18:04 | NUR ---
REPORT GIVEN REPORT VIA TELEPHONE TO REGGIE PINO.
--- NOTE | 2024-05-26 18:20 | NUR ---
UPDATE TRANSPORTED PATIENT VIA WHEELCHAIR. CHRIS ISLAS ASSISTED WITH PATIENT. PATIENT REQUESTED TO SIT IN CHAIR. REGGIE PINO CHECKED ALL 3 SITES IN ROOM. NO SWELLING, REDNESS, OR ACTIVE BLEEDING NOTED. DRESSING INTACT AND DRY. PATIENT ALERT AND ORIENTED X4. SPOUSE AT BEDSIDE. CALL LIGHT WITHIN REACH.
[2024-05-26] MEDS: FAMOTIDINE 20MG VIAL IV SCH (20:46)
[2024-05-27] VITALS (7 sets, daily range): BP systolic 94–108; BP diastolic 40–64; PULSE 64–91; RESP 16–20; TEMP 97.4–98.1; O2SAT 100
[2024-05-27] MEDS: PoTASSium chloRIDE 20MEQ ER 20 MEQ ERTAB PO ONE (11:30)
--- NOTE | 2024-05-27 11:30 | PN ---
[facility] PROGRESS NOTE Date of Service: May 27, 2024 Time of Service: 11:[address] Hay SUBJECTIVE: [ 05/26 28-year-old female with no previous medical problems, who presented to [facility] ED earlier today with complaints of abdominal pain concentrated to the right lower quadrant region, associated with nausea however no vomiting x2 days. Patient denied fever, chills, diarrhea, dysuria. Patient reporting similar symptoms approximately two months ago, which resolved on their own. Patient states her pain progressively worsened this morning therefore she decided to come to the hospital for further evaluation. Upon arrival to ED she was noted afebrile, blood pressure 105/64, heart rate 74, respirations 18, O2 saturation 100% on room air. Further evaluation labs reveal a T bili of 1.1, otherwise normal liver panel,, renal panel, no leukocytosis. Further workup CT a/P revealed findings consistent with acute appendicitis, with small amount of free fluid in the pelvic cul-de-sac, no evidence of abscess or free air. In the ED patient was initiated on broad-spectrum IV antibiotics, IVF, and request made to admit to the hospital for further evaluation. A surgical consult was obtained, and patient has had successful laparoscopic appendectomy performed today. 05/27 patient was seen by nurse practitioner physician during rounding in room 305. Patient is s/p appendectomy with Dr. Beckwith 05/26/2024. At this moment patient is tolerating clear liquid diet with advance to full liquid. We will wait for further recommendations/possible clearance for discharge from the surgeon. WBC 10.7 patient continues to be on levofloxacin. Patient will also receive 40 mEq of potassium for potassium results today of 3.6. We will continue to monitor patient in the meantime. Anticipated discharge within 24 hours. ] REVIEW OF SYSTEMS CONSTITUTIONAL: Denies fevers, chills, or night sweats. No unintentional weight loss reported. NEUROLOGICAL: Denies headache, amaurosis fugax, motor weakness, sensory deficit, vertigo/spinning sensation, gait abnormalities, or tremors. ENT: No hearing loss, otalgia, otorrhea, rhinitis, rhinorrhea, hoarseness, or sore throat. CARDIOVASCULAR: Denies any exertional angina, dyspnea on exertion, orthopnea, paroxysmal nocturnal dyspnea, palpitations, life-threatening arrhythmias, claudication. PULMONARY: Denies any shortness of breath, cough, phlegm/sputum, hemoptysis, pleuritic chest pain. SLEEP: Denies morning headaches, daytime somnolence or napping. Denies difficulty falling asleep, staying asleep, waking from sleep. Denies knowledge of snoring. GASTROINTESTINAL: Denies any type of dysphagia to either liquids or solids. Denies nausea, vomiting, pyrosis, early satiety, abdominal pain, diarrhea, constipation, or changes in stool consistency or caliber. Denies coffee-ground emesis, hematemesis, hematochezia, or melanotic stools. GENITOURINARY: Denies frequency, urgency, nocturia, hematuria or incontinence (Storage/Irritative symptoms.) Low urinary stream, straining to void, urinary intermittency or hesitancy, splitting of the voiding stream, terminal dribbling. ENDOCRINOLOGIC: Denies polyuria, polydipsia, polyphagia or heat/cold intolerances. HEMATOLOGIC: Denies thrombophilia/previous clots, or coagulopathy/bleeding disorders. ONCOLOGIC: Denies personal history of malignancy. DERMATOLOGIC: Denies rashes or pruritus. PSYCHIATRIC: Denies any suicidal or homicidal ideation. Denies hallucinations. PHYSICAL EXAM GENERAL APPEARANCE: The patient is awake, alert, and oriented, in no acute cardiopulmonary distress. NEUROLOGICAL: Cranial nerves II-XII grossly intact. Motor is 5/5 in bilateral upper and lower extremities proximal to distal. No sensory deficits. HEENT: Face is symmetric. Pupils are equal and reactive. Extraocular movements are intact. NECK: Supple. No JVD. No thyromegaly. No submental, submandibular, pre- /postauricular, occipital or supraclavicular lymphadenopathy. CHEST: Normal chest expansion. No Telemetry. LUNGS: Absence of any rales, rhonchi or any wheezing. CARDIOVASCULAR: Regular. S1 and S2 normal. No appreciable rubs, murmurs or gallops. ABDOMEN: Soft, bowel sounds positive. Nontender nondistended. Postop wounds clean dressings applied. : Deferred. No Villarreal. EXTREMITIES: Non-edematous and not cyanotic. No clubbing. Good capillary refill. SKIN: No skin breakdown. Vital Signs (last 8hr) Date Time Temp Pulse Resp B/P (MAP) Pulse Ox O2 Delivery O2 Flow Rate FiO2 05/27/24 08:00 98.1 68 18 94/57 100 Room Air 05/27/24 04:00 97.7 76 16 101/61 99 Room Air LABS: Laboratory: Test 05/26/24 05:23 Range/Units White Blood Count 10.7 4.8-10.8 K/uL Red Blood Count 4.79 4.00-5.50 MIL/uL Hemoglobin 13.3 12.0-16.0 g/dL Hematocrit 40.5 36-48 % Mean Corpuscular Volume 84.6 79-99 fL Mean Corpuscular Hemoglobin 27.8 27.0-33.0 pg Mean Corpuscular Hemoglobin Concent 32.8 32.0-36.0 g/dL Red Cell Distribution Width 12.6 11.0-15.5 % Platelet Count 233 130-400 K/uL Mean Platelet Volume 10.1 7.5-10.5 fL Immature Granulocyte % (Auto) 0.2 0-1 % Neutrophils (%) (Auto) 60.8 40.0-77.0 % Lymphocytes (%) (Auto) 31.3 21.0-51.0 % Monocytes (%) (Auto) 5.7 3.0-13.0 % Eosinophils (%) (Auto) 1.6 0.0-8.0 % Basophils (%) (Auto) 0.4 0.0-5.0 % Neutrophils # (Auto) 6.5 1.8-7.7 K/uL Lymphocytes # (Auto) 3.3 1.0-4.8 K/uL Monocytes # (Auto) 0.6 0.1-1.0 K/uL Eosinophils # (Auto) 0.17 0.00-0.70 K/uL Basophils # (Auto) 0.04 0.00-0.20 K/uL Absolute Immature Granulocyte (auto 0.02 0-1 K/uL Nucleated Red Blood Cells 0.0 0.0-0.19 % Urine Color LIGHT-YELLOW YELLOW Urine Appearance CLEAR CLEAR Urine pH 7.0 5.0-8.0 Urine Specific [place] 1.017 1.001-1.031 Urine Protein NEGATIVE NEGATIVE mg/dL Urine Glucose (UA) NEGATIVE NEGATIVE mg/dL Urine Ketones NEGATIVE NEGATIVE mg/dL Urine Occult Blood NEGATIVE NEGATIVE Urine Nitrate NEGATIVE NEGATIVE Urine Bilirubin NEGATIVE NEGATIVE mg/dL Urine Urobilinogen 0.2 0.2-1.0 mg/dL Urine Leukocyte Esterase 75 H NEGATIVE [place]/uL Urine RBC 0-1 0-1 /HPF Urine WBC 2-5 H 0-1 /HPF Urine Squamous Epithelial Cells FEW 0-2 /HPF Urine Bacteria FEW None Seen /HPF Urine HCG, Qualitative NEGATIVE NEGATIVE Sodium Level 140 136-145 mmol/L Potassium Level 3.6 3.5-5.1 mmol/L Chloride Level 106 101-111 mmol/L Carbon Dioxide Level 26 21-32 mmol/L Blood Urea Nitrogen 5 L 7-18 mg/dL Creatinine 0.5 0.5-1.0 mg/dL Glomerular Filtration Rate Calc 129 >90 mL/min Random Glucose 93 70-105 mg/dL Total Calcium 8.3 L 8.5-10.1 mg/dL Total Bilirubin 1.1 H 0.2-1.0 mg/dL Direct Bilirubin 0.2 0.0-0.3 mg/dL Aspartate Amino Transf (AST/SGOT) 13 10-37 U/L Alanine Aminotransferase (ALT/SGPT) 23 12-78 U/L Alkaline Phosphatase 67 50-136 U/L Total Protein 7.8 6.0-8.3 g/dL Albumin 3.3 L 3.5-5.0 g/dL Amylase Level 46 25-115 U/L Lipase 26 16-77 U/L Human Chorionic Gonadotropin, Quant 0 0-5 mIU/mL Current Medications Medications (Trade) Dose Ordered Sig/Paula Route PRN Reason Start Time Stop Time Status Last Admin Dose Admin Acetaminophen (TYLenol 325MG TAB) 650 mg Q6H PRN PO MILD PAIN (1-3) 05/26/24 10:00 06/25/24 09:59 Famotidine (Pepcid 20mg Vial) 20 mg BID IV 05/26/24 21:00 06/25/24 20:59 05/27/24 08:30 20 MG Levofloxacin/ Dextrose 150 ml @ 100 mls/hr Q24H IV 05/26/24 14:00 06/05/24 13:59 05/26/24 15:51 100 MLS/HR Levofloxacin/ Dextrose (LEvaquIN 750 MG/ D5W 150 ML) 500 mg Q24H IV 05/26/24 14:00 05/26/24 14:00 DC Morphine Sulfate (morPHINE 2MG SYG) 2 mg Q6H6 PRN IVP SEVERE PAIN (7-10) 05/26/24 10:00 06/02/24 09:59 Ondansetron HCl (zoFRAN 4MG INJ) 4 mg Q8H PRN IVP NAUSEA/VOMITING 05/26/24 10:00 06/25/24 09:59 Piperacillin Sod/ Tazobactam Sod (Zosyn 3.375gm+NS 50ml) 3.375 gm Q8H IV 05/26/24 14:00 05/26/24 13:49 DC DIAGNOSTICS / RADIOLOGY: [ ] ASSESSMENT: Acute appendicitis POA Elevated T bili POA Obesity POA PLAN: Continue monitoring patient on medical floor Clear liquid diet discontinue patient was placed on full liquid diet Patient status post successful laparoscopic appendectomy performed by Dr. Mathew na Continue to follow up with surgical team. Pain control. Continue broad-spectrum IV antibiotics with levofloxacin Patient will receive 40 mEq of potassium to replace potassium 3.6 today in a.m.. DVT and GI prophylaxis Encourage ambulation P.r.n. medications for fever, pain, nausea, constipation Follow-up a.m. labs Further orders per hospital course. Possible DC home in a.m.. Anticipated discharge within 24 hours ATTESTATION BY PHYSICIAN I have seen and examined the patient. I reviewed the documentation, medical decision making, and treatment plan as noted by the mid-level provider above. I agree with the findings and plan of care. Davon Hay IV, MD, KATARZYNA B PATTERN MARKER May 27, 2024 11:30
--- NOTE | 2024-05-27 14:19 | NUR ---
DCP Patient states lives in a house with in laws, three children and Mehrdad Joyce, Spouse [phone]. States she is unemployed, remains independent, and drives self. States able to omplete ADL's on her own. Denied medical devices. Denies home health services, provider services and dialysis. PCP - None at this time. Pharmacy - [facility] [place]. Upon discharge, Mehrdad Joyce, Spouse [phone] will assist with transportation and care at home. Denies food stamp assistance or Medicaid and no other insurance. Children have BCBS. Provided Community Resource List to patient. Addendum: 05/27/24 at 1425 by GENE HEARD RN CM Amended: Links added.
--- NOTE | 2024-05-27 14:50 | PN ---
This is a 28 year old female pod 1 from [facility] for acute uncomplicated appendicits. She is tolerating diet. Pain is minimal. Abdomen soft and non- tender. Patient is ok for discharge from a surgical standpoint. No heavy lifting for 4 weeks. Follow up with me in 2 weeks for staple removal. Vitals/Labs Vital Signs Date Time Temp Pulse Resp B/P (MAP) Pulse Ox O2 Delivery O2 Flow Rate FiO2 05/27/24 12:00 97.9 75 18 96/48 100 Room Air 05/27/24 08:00 0 21 STEPHANIE OBANDO DO May 27, 2024 14:50
[2024-05-28] VITALS: BP 112/63; PULSE 80; RESP 20; TEMP 97.7
[2024-05-28 04:00] VITALS: BP 99/57; PULSE 88; RESP 20; TEMP 98.3
[2024-05-28 05:47] LABS: BASOPHILS # (AUTO) 0.03 K/uL (0.00-0.20); BASOPHILS % (AUTO) 0.4 % (0.0-5.0); EOSINOPHILS # (AUTO) 0.07 K/uL (0.00-0.70); HEMATOCRIT 36.9 % (36-48); IMMATURE GRANULOCYTE ABSOLUTE 0.02 K/uL (0-1); LYMPHOCYTES # (AUTO) 3.4 K/uL (1.0-4.8); LYMPHOCYTES % (AUTO) 46.5 % (21.0-51.0); MEAN CORPUSCULAR HEMOGLOBIN 27.4 pg (27.0-33.0); MEAN CORPUSCULAR HGB CONC 32.5 g/dL (32.0-36.0); MEAN CORPUSCULAR VOLUME 84.2 fL (79-99); MONOCYTES # (AUTO) 0.6 K/uL (0.1-1.0); MONOCYTES % (AUTO) 7.5 % (3.0-13.0); NEUTROPHILS # (AUTO) 3.3 K/uL (1.8-7.7); NEUTROPHILS % (AUTO) 44.3 % (40.0-77.0); PLATELET COUNT (AUTO) 252 K/uL (130-400); RED BLOOD CELL COUNT(AUTO) 4.38 MIL/uL (4.00-5.50); RED CELL DISTRIBUTION WIDTH 13.2 % (11.0-15.5); WHITE BLOOD COUNT (AUTO) 7.4 K/uL (4.8-10.8)
[2024-05-28 06:00] LABS: ALBUMIN 3.1 g/dL (3.5-5.0); BILIRUBIN,TOTAL 0.4 mg/dL (0.2-1.0); CREATININE 0.7 mg/dL (0.5-1.0); MAGNESIUM 1.9 mg/dL (1.80-2.40); POTASSIUM 3.8 mmol/L (3.5-5.1); TOTAL PROTEIN, SERUM 7.5 g/dL (6.0-8.3)
[2024-05-28] MEDS ORDERED: LEVO-70 PO (06:51)
[2024-05-28 08:15] VITALS: O2SAT 100
--- NOTE | 2024-05-28 08:20 | NUR ---
DISCHARGE PT PIV DC'D PT VERBALIZED UNDERSTANDING OF DISCHARGE INSTRUCTIONS PT GATHERED AND TOOK ALL BELONGINGS PT HAD NO FURTHER QUESTION AT TIME OF DISCHARGE
[2024-05-28 08:50] VITALS: BP 101/56; PULSE 61; RESP 18; TEMP 98.1
--- NOTE | 2024-05-28 12:43 | DS ---
Discharge Summary Hospital Course Summary: DATE OF ADMISSION:[05/26/2024] DATE OF DISCHARGE:[05/28/2024] DISPOSITION:[Home] CONDITION:[Medically stable] CONSULTANTS:[Surgeon] FOLLOW UP APPOINTMENTS:[PCP 2 to 3 days. Surgeon within one week] PROCEDURES:[Appendectomy 05/26/2024] IMAGING: report attached to summary MICROBIOLOGY: report attached to summary ACTIVITY:[] Independent HOME MEDICATIONS: see [facility] NEW MEDICATIONS:[Levofloxacin 500 mg p.o. daily] EMERGENCY INSTRUCTIONS: The patient was instructed to present to the nearest Emergency departmentr or call 911 once their symptoms will return or worsen Deburr Operator(s): 28-year-old female with no previous medical problems, who presented to [facility] ED earlier today with complaints of abdominal pain concentrated to the right lower quadrant region, associated with nausea however no vomiting x2 days. Patient denied fever, chills, diarrhea, dysuria. Patient reporting similar symptoms approximately two months ago, which resolved on their own. Patient states her pain progressively worsened this morning therefore she decided to come to the hospital for further evaluation. Throughout the hospitalization patient underwent appendectomy on 05/26/[address] Beckwith. Afterwards patient was put on a clear liquid diet and was advanced to full liquid diet and now on GI soft diet. Patient denies any shortness of breath, chest pain, nausea, vomiting or any swallowing problems. Patient was cleared from the surgical point of view to be discharged home. Follow up with PCP in 2 to 3 days. Follow up with surgeon within one week. Procedure(s): REVIEW OF SYSTEMS CONSTITUTIONAL: Denies fevers, chills, or night sweats. No unintentional weight loss reported. NEUROLOGICAL: Denies headache, amaurosis fugax, motor weakness, sensory deficit, vertigo/spinning sensation, gait abnormalities, or tremors. ENT: No hearing loss, otalgia, otorrhea, rhinitis, rhinorrhea, hoarseness, or sore throat. CARDIOVASCULAR: Denies any exertional angina, dyspnea on exertion, orthopnea, paroxysmal nocturnal dyspnea, palpitations, life-threatening arrhythmias, claudication. PULMONARY: Denies any shortness of breath, cough, phlegm/sputum, hemoptysis, pl euritic chest pain. SLEEP: Denies morning headaches, daytime somnolence or napping. Denies difficulty falling asleep, staying asleep, waking from sleep. Denies knowledge of snoring. GASTROINTESTINAL: Denies any type of dysphagia to either liquids or solids. Denies nausea, vomiting, pyrosis, early satiety, abdominal pain, diarrhea, constipation, or changes in stool consistency or caliber. Denies coffee-ground emesis, hematemesis, hematochezia, or melanotic stools. GENITOURINARY: Denies frequency, urgency, nocturia, hematuria or incontinence (Storage/Irritative symptoms.) Low urinary stream, straining to void, urinary intermittency or hesitancy, splitting of the voiding stream, terminal dribbling. ENDOCRINOLOGIC: Denies polyuria, polydipsia, polyphagia or heat/cold intolera nces. HEMATOLOGIC: Denies thrombophilia/previous clots, or coagulopathy/bleeding disorders. ONCOLOGIC: Denies personal history of malignancy. DERMATOLOGIC: Denies rashes or pruritus. PSYCHIATRIC: Denies any suicidal or homicidal ideation. Denies hallucinations. PHYSICAL EXAM GENERAL APPEARANCE: The patient is awake, alert, and oriented, in no acute cardiopulmonary distress. NEUROLOGICAL: Cranial nerves II-XII grossly intact. Motor is 5/5 in bilateral upper and lower extremities proximal to distal. No sensory deficits. HEENT: Face is symmetric. Pupils are equal and reactive. Extraocular movements are intact. NECK: Supple. No JVD. No thyromegaly. No submental, submandibular, pre- /postauricular, occipital or supraclavicular lymphadenopathy. CHEST: Normal chest expansion. No Telemetry. LUNGS: Absence of any rales, rhonchi or any wheezing. CARDIOVASCULAR: Regular. S1 and S2 normal. No appreciable rubs, murmurs or gallops. ABDOMEN: Soft, bowel sounds positive. Nontender nondistended. Postop wounds clean dressings applied. : Deferred. No Villarreal. EXTREMITIES: Non-edematous and not cyanotic. No clubbing. Good capillary refill. SKIN: No skin breakdown. Assessment/Plan: ASSESSMENT: Acute appendicitis POA s/p appendectomy 05/26/2024 Dr. Beckwith Elevated T bili POA Obesity POA Home Medications: Active Scripts Levofloxacin (Levofloxacin) 500 Mg Tablet, 500 MG PO DAILY, #5 TAB Prov:MAXINE SANTAMARIA APRN 05/28/24 Sulfamethoxazole/Trimethoprim (Bactrim Ds Tablet) 800 Mg-160 Mg Tablet, 1 TAB PO BID for 7 Days, #14 TAB 0 Refills Prov:THOMAS GARCIA MD 04/05/24 Reported Medications Vits W-Ca,Fe,FA(<1Mg) ( Vitamins) 1 Each Tablet, 1 EACH PO DAILY, TAB 07/12/21 Kuf500/Iron Fumarate/FA/Dss ( 19 Tablet) 1 Each Tablet, 1 EACH PO AD, TAB 02/11/17 Ibuprofen (Ibuprofen) 600 Mg Tablet, 600 MG PO Q6H PRN for PAIN, #60 TAB 01/25/15 Time spent arranging discharge: 31-60 minutes ATTESTATION BY PHYSICIAN I have seen and examined the patient. I reviewed the documentation, medical decision making, and treatment plan as noted by the mid-level provider above. I agree with the findings and plan of care. Davon Hay IV, MD, KATARZYNA B WINDOW TRIMMER APPRENTICE May 28, 2024 12:43
== END 2024-05-28 09:15 | disposition home or self-care (01) | DRG 399 ==
LOC: EDH 05:06 → EDHIP 05:07 → 3BH 18:20
PROVIDERS: ADMIT Internal Medicine; ATTEND Internal Medicine
PROC: 0DTJ4ZZ Resection of Appendix, Percutaneous Endoscopic Approach (ICD-10-PCS; principal; 2024-05-26 11:10)
DX: K35.80 Unspecified acute appendicitis (principal); E66.9 Obesity, unspecified; K59.00 Constipation, unspecified; Z68.34 Body mass index [BMI] 34.0-34.9, adult
CPT/HCPCS: 36415; 74177; 80048; 80053; 80076; 81001; 81025; 82150; 83690; 83735; 84702; 85025; 87086; 88304; 96374; 96375; 99285; A4344; G0378; J0330; J0696; J1100; J1885; J1956; J2003; J2250; J2405; J2704; J2710; J2795; J3010; J3490; J7030; Q9967; A4216; A4222; A4223; A4600; A4649; A6206; C1769; J0665

== ENCOUNTER 2024-06-12 14:21 | Emergency (ER) | payer SELFPAY ==
[~2024-06-12] VITALS: Ht 152.4 cm; Wt 82.1 kg
[~2024-06-12 14:21] MED LIST changes: +LEVO-70 PO
[2024-06-12] MEDS ORDERED: CLIN-141 PO (16:18)
--- NOTE | 2024-06-12 16:18 | ERN ---
ED Note History of Present Illness Stated Complaint: POSSIBLE POST OP INFECTION Chief Complaint: Wound Check Time Seen by MD: 14:24 Dictation: 28-year-old female presents to the ED for surgical wound evaluation. Patient reports burning sensation and redness to surgical site, patient had her appendix removed on May 26 and states she has been having the burning sensation and redness to one of the surgical sites. Allergies: Coded Allergies: Penicillins (Verified Allergy, Unknown, RASH, 01/23/15) Home Meds Active Scripts Clindamycin HCl (Clindamycin HCl) 300 Mg Capsule, 1 CAP PO QID for 10 Days, #40 CAP 0 Refills Prov:GOPI DIAZ MD 06/12/24 Levofloxacin (Levofloxacin) 500 Mg Tablet, 500 MG PO DAILY, #5 TAB Prov:MAXINE SANTAMARIA [employer] INSPECTOR 05/28/24 Sulfamethoxazole/Trimethoprim (Bactrim Ds Tablet) 800 Mg-160 Mg Tablet, 1 TAB PO BID for 7 Days, #14 TAB 0 Refills Prov:THOMAS GARCIA MD 04/05/24 Reported Medications Vits W-Ca,Fe,FA(<1Mg) ( Vitamins) 1 Each Tablet, 1 EACH PO DAILY, TAB 07/12/21 Siw120/Iron Fumarate/FA/Dss ( 19 Tablet) 1 Each Tablet, 1 EACH PO AD, TAB 02/11/17 Ibuprofen (Ibuprofen) 600 Mg Tablet, 600 MG PO Q6H PRN for PAIN, #60 TAB 01/25/15 Past Medical History Past Medical History: Other Additional Past Medical Hx: FATTY LIVER Surgical History: None : 3 Para: 3 Aborts: 0 Review of System Dictation Constitutional: Negative for fever,chills, and weight loss Eyes: Negative for injury, pain,redness, and discharge ENT: Negative for injury,pain or swelling Cardiovascular: Negative for chest pain, palpitations, and edema Respiratory: Negative for shortness of breath, cough, and wheezing, Abdomen/GI: Negative for abdominal pain, nausea, vomiting, diarrhea, and constipation Back: Negative for injury and pain : Negative for injury, bleeding and discharge MS/Extremity: Negative for injury and deformity Skin: Positive for surgical wound burning sensation, redness Neuro: Negative for headache, weakness, numbness, tingling, and seizure Psych: Negative for suicide ideation, homicidal ideation, and hallucinations Initial Vital Sign VS Vital Signs Date Time Temp Pulse Resp B/P (MAP) Pulse Ox O2 Delivery O2 Flow Rate FiO2 06/12/24 14:26 98.2 88 16 115/66 99 Room Air Physical Exam Dictation General: awake, alert, NAD Head/Face: Normocephalic, atraumatic Eyes: PERRL, EOMI, vision at baseline ENT: oral cavity clear, TMs clear, no signs of infection Neck: Trachea midline, supple, no nuchal rigidity Cardiovascular: RRR, normal S1/S2, No MRGs, no JVD Respiratory: CTAB, no respiratory distress, No rales or wheezes Abdomen: Soft, non-tender, non-distended, normal bowel sounds, no guarding or rebound. Mild erythema to surgical site, healing on its expected, no discharge Skin: Warm, dry, normal turgor, no rash MS/Extremity: Pulses equal, no cyanosis, neurovascular intact, FROM Neuro: COAx4, GCS 15, strength 5/5, CN 2-12 intact, normal cerebellar exam, normal gait, Psych: Normal behavior, mood, and affect normal ED Course ED Course Vital Signs Date Time Temp Pulse Resp B/P (MAP) Pulse Ox O2 Delivery O2 Flow Rate FiO2 06/12/24 14:26 98.2 88 16 115/66 99 Room Air Medical Decision Making MDM MDM: Differential diagnosis: Postop wound check, wound evaluation Risk of complication and/or morbidity or mortality of patient management: None Medications-Per medication reconciliation Need for hospitalization: Patient does not meet criteria for hospitalization. Need for emergency major/minor surgery: No There are no social concerns with this patient. Prescription drug management Prescriptions will include symptomatic care DX & DISP Disposition: Discharge Departure Impression: Primary Impression: Visit for wound check Additional Impression: Encounter for postoperative wound check Condition: Stable Scripts Clindamycin HCl (Clindamycin HCl) 300 Mg Capsule 1 CAP PO QID for 10 Days, #40 CAP 0 Refills Prov: GOPI DIAZ MD 06/12/24 Referrals: SELF,REFERRAL (PCP) GOPI DIAZ MD Jun 12, 2024 16:18
[2024-06-12 16:25] VITALS: BP 125/65; PULSE 84; RESP 20; TEMP 98.9; O2SAT 98
== END 2024-06-12 16:29 | disposition home or self-care (01) ==
LOC: EDH 14:21
DX: Z48.815 Encounter for surgical aftercare following surgery on the digestive system (principal); Z79.899 Other long term (current) drug therapy; Z88.0 Allergy status to penicillin
CPT/HCPCS: 99283